=== PATIENT | male | born 1970 | race Caucasian/White ===

== ENCOUNTER 2017-09-24 02:01 | Emergency (ER) | payer OTHER ==
--- NOTE | 2017-09-24 02:08 | PDOC ---
History of Present Illness - General History Source: Patient Exam Limitations: No Limitations - History of Present Illness Initial Comments: 09/24/17 03:18 Patient is a 46 year old male with a significant past medical history of diabetes, who presents to the ED with complaints of diffuse epigastric pain that began 1.5 hours before ED arrival. Patient reports experiencing intermittent epigastric pain that began 1.5 hours before arrival while at home. He reports eating arabic food tonight at 8pm and states it is what has given him these symptoms. Patient states epigastric pain is currently a sharp pain, that is 10/10 in intensity that he states feels like someone is punching him in the stomach. Patient states 1 episode of induced vomiting while brushing his teeth and one small episode of vomiting in the ED. He reports last bowel movement was at 8pm and last urination was at 9pm. Patient reports experiencing similar pain last year from same arabic restaurant. Denies chest pain, SOB. Denies chills. Denies nausea. Denies contact with sick individual, out of state travel. Denies any other symptoms. Allergies: None Social history: Current smoker (6 cigarettes per day). No alcohol. No illicit drugs. Surgical history: None PMD: None <Rao Kim - Last Filed: 09/24/17 03:17> <Alex Cruz - Last Filed: 09/24/17 04:15> - General Chief Complaint: Pain Stated Complaint: ABDOMINAL PAIN Time Seen by Provider: 09/24/17 02:08 Past History <Rao Kim - Last Filed: 09/24/17 03:17> - Past Medical History Asthma: Yes Diabetes: Yes (PO AND SQ MEDS) HTN: Yes (NOT ON MEDS) Hypercholesterolemia: Yes (NOT ON MEDS) Thyroid Disease: Yes (NOT ON MEDS) - Immunization History Td Vaccination: Yes TDAP Vaccination: Yes Immunization Up to Date: (NEGATIVE HIV AND HEP C 2013) - Suicide/Smoking/Psychosocial Hx Smoking Status: Yes Smoking History: Current every day smoker Number of Cigarettes Smoked Daily: 5 Hx Alcohol Use: No Substance Use Type: Heroin, Prescribed <Alex Cruz - Last Filed: 09/24/17 04:15> - Past Medical History Allergies/Adverse Reactions: Allergies Allergy/AdvReac Type Severity Reaction Status Date / Time No Known Allergies Allergy Verified 09/24/17 02:07 Home Medications: Ambulatory Orders Buprenorphine/Naloxone [Suboxone 8 mg/2 mg Sl Film] 1 each SL BID 06/02/13 Insulin (Levemir) [Levemir Flexpen -] 40 units SQ BID 06/02/13 Metformin HCl [Riomet] 500 mg PO BID 06/02/13 Famotidine [Pepcid] 20 mg PO DAILY #0 tablet 06/03/13 Mag Hydrox/Al Hydrox/Simeth [Maalox Advanced Suspension] 30 ml PO QID #0 oral.susp 06/03/13 Ondansetron [Zofran *Odt*] 4 mg SL PRN PRN #14 od.tablet 11/08/15 Review of Systems - Review of Systems Able to Perform ROS?: Yes Comments:: 09/24/17 03:18 GENERAL/CONSTITUTIONAL: No fever or chills. No weakness. HEAD, EYES, EARS, NOSE AND THROAT: No change in vision. No ear pain or discharge. No sore throat. CARDIOVASCULAR: No chest pain or shortness of breath. RESPIRATORY: No cough, wheezing, or hemoptysis. GASTROINTESTINAL: +Diffuse epigastric pain. No nausea, diarrhea or constipation. GENITOURINARY: No dysuria, frequency, or change in urination. MUSCULOSKELETAL: No joint or muscle swelling or pain. No neck or back pain. SKIN: No rash NEUROLOGIC: No headache, vertigo, loss of consciousness, or change in strength/ sensation. ENDOCRINE: No increased thirst. No abnormal weight change. HEMATOLOGIC/LYMPHATIC: No anemia, easy bleeding, or history of blood clots. ALLERGIC/IMMUNOLOGIC: No hives or skin allergy. All Other Systems: Reviewed and Negative <Rao Kim - Last Filed: 09/24/17 03:17> *Physical Exam - Vital Signs Last Vital Signs Temp Pulse Resp BP Pulse Ox 98.0 F 98 H 14 141/92 100 09/24/17 02:07 09/24/17 02:07 09/24/17 02:07 09/24/17 02:07 09/24/17 02:07 - Physical Exam Comments: 09/24/17 03:18 GENERAL: Awake, alert, and fully oriented, in no acute distress HEAD: No signs of trauma EYES: PERRLA, EOMI, sclera anicteric, conjunctiva clear ENT: Auricles normal inspection, hearing grossly normal, nares patent, oropharynx clear without exudates. Moist mucosa NECK: Normal ROM, supple, no lymphadenopathy, JVD, or masses LUNGS: Breath sounds equal, clear to auscultation bilaterally. No wheezes, and no crackles HEART: Regular rate and rhythm, normal S1 and S2, no murmurs, rubs or gallops ABDOMEN: +Diffuse Tenderness in all four quadrants. No peritoneal signs, No distention. No Tympani. Soft, nontender, normoactive bowel sounds. No guarding, no rebound. No masses EXTREMITIES: Normal range of motion, no edema. No clubbing or cyanosis. No cords, erythema, or tenderness NEUROLOGICAL: Cranial nerves II through XII grossly intact. Normal speech, normal gait SKIN: Warm, Dry, normal turgor, no rashes or lesions noted. <Rao Kim - Last Filed: 09/24/17 03:17> ED Treatment Course - LABORATORY CBC & Chemistry Diagram: 09/24/17 02:32 09/24/17 02:32 - ADDITIONAL ORDERS Additional order review: Laboratory Results 09/24/17 02:32 PT with INR 10.10 INR 0.89 09/24/17 02:32 RBC 4.85 MCV 85.1 MCHC 33.5 RDW 13.0 MPV 8.8 Neutrophils % 63.3 Lymphocytes % 26.8 D Monocytes % 5.8 Eosinophils % 3.5 D Basophils % 0.6 - Medications Given in the ED: ED Medications Discontinued Medications Generic Name Dose Route Start Last Admin Trade Name Freq PRN Reason Stop Dose Admin Dicyclomine HCl 20 mg 09/24/17 02:16 09/24/17 02:40 Bentyl Injection - IM 09/24/17 02:17 Not Given ONCE ONE Dicyclomine HCl 20 mg 09/24/17 02:26 09/24/17 02:34 Bentyl - PO 09/24/17 02:27 20 mg ONCE ONE Administration Lidocaine HCl 30 ml 09/24/17 02:26 09/24/17 02:34 Xylocaine 2% Viscous Oral - MM 09/24/17 02:27 30 ml ONCE ONE Administration Simethicone 160 mg 09/24/17 02:19 09/24/17 02:34 Mylicon - PO 09/24/17 02:20 Not Given ONCE ONE <Kishore Kimew - Last Filed: 09/24/17 03:17> - LABORATORY CBC & Chemistry Diagram: 09/24/17 02:32 09/24/17 02:32 <Alex Cruz - Last Filed: 09/24/17 04:15> *DC/Admit/Observation/Transfer - Attestations Scribe Attestion: 09/24/17 03:18 Documentation prepared by Rao Kim, acting as medical imaging technician for Alex Cruz MD/DO. <Rao Kim - Last Filed: 09/24/17 03:17> - Discharge Dispostion Admit: No - Attestations Physician Attestion: 09/24/17 02:08 I, Dr. Alex Cruz, attest that this document has been prepared under my direction and personally reviewed by me in its entirety. I further attest, that it accurately reflects all work, treatment, procedures and medical decision -making performed by me. <Alex Cruz - Last Filed: 09/24/17 04:15> Diagnosis at time of Disposition: Abdominal pain Qualifiers: Abdominal location: unspecified location Qualified Code(s): R10.9 - Unspecified abdominal pain - Discharge Dispostion Disposition: HOME Condition at time of disposition: Good - Patient Instructions Printed Discharge Instructions: DI for Abdominal Pain-Adult Additional Instructions: Y[place]- Sorry this happened to you. Stay away from that food. Return to us if worse or any problems. Follow up with your doctor later this week. Best- Dr. Alex Cruz
[2017-09-24 02:10] VITALS: TEMP 98; BMI 33.5
[2017-09-24] MEDS ORDERED: DICYCLOMINE HCL 20 MG/2 ML AMPUL IM ONE (02:16)
[2017-09-24] MEDS ORDERED: SODIUM CHLORIDE 1,000 ML IV STA (02:19)
[2017-09-24] MEDS ORDERED: SIMETHICONE 80 MG TAB.CHEW (FP) PO ONE (02:19)
[2017-09-24] MEDS ORDERED: DICYCLOMINE HCL 10 MG CAPSULE ONE (02:25)
[2017-09-24] MEDS ORDERED: DICYCLOMINE HCL 20 MG TABLET PO ONE (02:26)
[2017-09-24] MEDS ORDERED: LIDOCAINE VISCOUS 2% ORAL/TOP 20 ML UNIT-DOSE CUP ONE ×2 (02:26→04:18)
[2017-09-24] MEDS ORDERED: LIDOCAINE VISCOUS 2% ORAL/TOP 20 ML UNIT-DOSE CUP MM ONE ×2 (02:26→04:12)
[2017-09-24] MEDS ORDERED: MAG HYDROX/AL HYDROX/SIMETH 30 ML UNIT-DOSE CUP ONE ×2 (02:26→04:18)
[2017-09-24] MEDS ORDERED: MAG HYDROX/AL HYDROX/SIMETH 30 ML UNIT-DOSE CUP PO PRN (02:26)
[2017-09-24 02:41] LABS: BASOPHIL 0.6 % (0-2.0); EOSINOPHIL 3.5 % (0-4.5); MCH 28.5 pg (25.7-33.7); MCHC 33.5 g/dl (32.0-35.9); MEAN CELL VOLUME 85.1 fl (80-96); MEAN PLT VOLUME 8.8 fl (7.5-11.1); NEUTROPHILS 63.3 % (42.8-82.8); PLATELET COUNT 302 K/MM3 (134-434)
[2017-09-24 02:53] LABS: INR 0.89 (0.82-1.09); PROTHROMBIN TIME (PATIENT) 10.1 SEC (9.98-11.88)
[2017-09-24 03:12] LABS: ALBUMIN 4.2 g/dl (3.4-5.0); ANION GAP 9 (8-16); BILIRUBIN,TOTAL 0.3 mg/dL (0.2-1.0); CALCIUM 9.2 mg/dL (8.5-10.1); CO2 27 mmol/L (21-32); CREATININE 0.8 mg/dL (0.7-1.3); GLUCOSE,RANDOM 253 mg/dL (74-106); SGOT/AST 12 U/L (15-37); TOT PROT 7.2 g/dl (6.4-8.2)
[2017-09-24 03:18] LABS: ALK PHOS 102 U/L (45-117); SGPT/ALT 28 U/L (12-78)
[2017-09-24] MEDS ORDERED: MAG HYDROX/AL HYDROX/SIMETH 30 ML UNIT-DOSE CUP PO ONE (04:12)
[2017-09-24 04:26] VITALS: BP 141/87; PULSE 85
== END 2017-09-24 04:25 | disposition home or self-care (01) ==
LOC: JER 02:01
PROC: 3E0337Z Introduction of Electrolytic and Water Balance Substance into Peripheral Vein, Percutaneous Approach (ICD-10-PCS; principal; 2017-09-24)
DX: R10.13 Epigastric pain (principal); I10 Essential (primary) hypertension; E78.00 Pure hypercholesterolemia, unspecified; E11.9 Type 2 diabetes mellitus without complications; Z79.4 Long term (current) use of insulin; Z79.84 Long term (current) use of oral hypoglycemic drugs; E07.9 Disorder of thyroid, unspecified
CPT/HCPCS: 36415; 80053; 83690; 85025; 85610; 96360; 99283-25

== ENCOUNTER 2020-01-04 10:45 | Inpatient (IN) | payer OTHER ==
[2020-01-04 11:16] VITALS: BMI 30.1
--- NOTE | 2020-01-04 13:43 | HP ---
COWS - Scale Resting Pulse: 2= SD 101-120 Sweatin= Chills/Flushing Restless Observation: 1= Difficult to Sit Still Pupil Size: 1= Pupils >than Normal Bone or Joint Aches: 2= Severe Diffuse Aches Runny Nose/ Eye Tearin= Runny Nose/Eyes GI Upset > 30mins: 2= Nausea/Diarrhea Tremor Observation: 2= Slight Tremor Visible Yawning Observation: 2= >3x During Session Anxiety or Irritability: 2=Irritable/Anxious Goose Flesh Skin: 0=Smooth Skin COWS Score: 17 CIWA Score Nausea/Vomitin-Mild Nausea/No Vomiting Muscle Tremors: 2 Anxiety: 2 Agitation: 2 Paroxysmal Sweats: 1-Minimal Palms Moist Orientation: 0-Oriented Tacttile Disturbances: 1-Very Mild Itch/Numbness Auditory Disturbances: 0-None Visual Disturbances: 1-Very Mild Sensitivity Headache: 2-Mild CIWA-Ar Total Score: 12 - Admission Criteria OASAS Guidelines: Admission for Medically Managed Detox: Requires at least one of the followin. CIWA greater than 12 2. Seizures within the past 24 hours 3. Delirium tremens within the past 24 hours 4. Hallucinations within the past 24 hours 5. Acute intervention needed for co occurring medical disorder 6. Acute intervention needed for co occurring psychiatric disorder 7. Severe withdrawal that cannot be handled at a lower level of care (continued vomiting, continued diarrhea, abnormal vital signs) requiring intravenous medication and/or fluids 8. Admitting History and Physical - Admission Chief Complaint: i sharonda help to stop using heroin History of Present Illness: this 49 years old male with heroin dependence,seeking help to stop,also on xanax first visit to this facility seizure drug withdrawal ,last 1 years ago syncope longest sobriety 5 years nicotine dependence plan for out patient program,possible methadone program . 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 Psych: Yes: Bipolar, Depression Endocrine: Yes: Diabetes Mellitus - Past Surgical History Past Surgical History: Yes: None - Smoking History Smoking history: Current every day smoker Have you smoked in the past 12 months: Yes Aproximately how many cigarettes per day: 5 - Alcohol/Substance Use Hx Alcohol Use: No History of Substance Use: reports: Heroin, Tranquilizers - Social History Usual Living Arrangement: Yes: Alone ADL: Support Services Occupation: unemployed History of Recent Travel: No Admission ROS [facility] Chief Complaint: i need hel[ to stop using drug heroin and xanax Allergies/Adverse Reactions: Allergies Allergy/AdvReac Type Severity Reaction Status Date / Time No Known Allergies Allergy Verified 01/04/20 10:55 History of Present Illness: this 49 years old male with heroin and xanax dependence,seeking help,withdrawal symptom seizure last 10 years ago last detox 10 years ago in [facility] dm2 - Ebola screening Have you traveled outside of the country in the last 21 days: No Have you had contact with anyone from an Ebola affected area: No Do you have a fever: No - Review of Systems Constitutional: Chills, Loss of Appetite, Malaise, Night Sweats, Changes in sleep, Weakness EENT: reports: Tearing, Nose Congestion Respiratory: reports: No Symptoms reported Cardiac: reports: No Symptoms Reported GI: reports: Nausea, Poor Appetite, Vomiting, Abdominal cramping : reports: No Symptoms Reported Musculoskeletal: reports: Back Pain, Muscle Pain Integumentary: reports: Dryness Neuro: reports: Headache, Tremors Endocrine: reports: No Symptoms Reported Hematology: reports: No Symptoms Reported Psychiatric: reports: No Sypmtoms Reported, Mood/Affect Appropiate, Orientated x3 Other Systems: Reviewed and Negative Patient History - Patient Medical History Hx Asthma: No Hx Chronic Obstructive Pulmonary Disease (COPD): No Hx Cardiac Disorders: Yes Hx Hypertension: No Hx Hypercholesterolemia: Yes (on lipitor 40 mgs po daily) Hx Seizures: No Hx Diabetes: Yes (on meds) Hx Gastrointestinal Disorders: No Hx Genitourinary Disorders: No Hx Sexually Transmitted Disorders: No Hx Renal Disease (ESRD): No Hx Thyroid Disease: Yes (on med hypothroidism synthroid 50 mcg po daily) Hx Human Immunodeficiency Virus (HIV): No (last 2019 negative) Hx Hepatitis C: No Hx Depression: Yes Hx Suicide Attempt: No Hx Bipolar Disorder: Yes Hx Schizophrenia: No Other Medical History: no suicidal,no homicidal - Patient Surgical History Past Surgical History: No Hx Neurologic Surgery: No Hx Cataract Extraction: No Hx Cardiac Surgery: No Hx Lung Surgery: No Hx Breast Surgery: No Hx Breast Biopsy: No Hx Abdominal Surgery: No Hx Appendectomy: No Hx Cholecystectomy: No Hx Genitourinary Surgery: No Hx Section: No Hx Orthopedic Surgery: No Anesthesia Reaction: No - PPD History Previous Implant?: Yes Documented Results: Positive w/o proof Implanted On Prior R Admission?: No PPD to be Administered?: No - Smoking Cessation Smoking history: Current every day smoker Have you smoked in the past 12 months: Yes Aproximately how many cigarettes per day: 5 Cigars Per Day: 0 Hx Chewing Tobacco Use: No Initiated information on smoking cessation: Yes 'Breaking Loose' booklet given: 01/04/20 - Substance & Tx. History Hx Alcohol Use: No Hx Substance Use: Yes Substance Use Type: Heroin, Tranquilizers Hx Substance Use Treatment: Yes (2009 did not recall facility) - Substances abused Heroin Substance route: Injection Frequency: Daily Amount used: 20 bags Age of first use: 17 Date of last use: 01/04/20 Alprazolam (Xanax) Substance route: Oral Frequency: Daily Amount used: 6mgs Age of first use: 20 Date of last use: 01/04/20 Admission Physical Exam S - Vital Signs Vital Signs: Vital Signs - 24 hr 01/04/20 01/04/20 01/04/20 11:04 11:19 13:28 Temperature 97.5 F L 97.5 F L 97.5 F L Pulse Rate 103 H 103 H 103 H Respiratory 20 20 20 Rate Blood Pressure 99/69 99/69 99/69 - Physical General Appearance: Yes: Moderate Distress, Tremorous, Irritable, Sweating, Anxious HEENTM: Yes: Normal ENT Inspection, RAUL, Pharynx Normal Respiratory: Yes: Lungs Clear, Normal Breath Sounds, No Respiratory Distress Neck: Yes: Within Normal Limits, Supple, Trachea in good position Breast: Yes: Within Normal Limits Cardiology: Yes: Tachycardia Abdominal: Yes: Within Normal Limits, Normal Bowel Sounds, Non Tender, Soft Genitourinary: Yes: Within Normal Limits Back: Yes: Muscle Spasm Musculoskeletal: Yes: Back pain, Muscle Pain Extremities: Yes: Tremors Neurological: Yes: insulation cutter II-XII NML intact, Fully Oriented, Alert, Motor Strength 5/5 Integumentary: Yes: Dry Lymphatic: Yes: Within Normal Limits - Diagnostic (1) Opioid dependence with withdrawal Current Visit: Yes Status: Acute (2) Seizure Current Visit: Yes Status: Acute (3) Syncope Current Visit: Yes Status: Acute (4) IVDU (intravenous drug user) Current Visit: Yes Status: Acute (5) DM2 (diabetes mellitus, type 2) Current Visit: Yes Status: Acute (6) Hypothyroidism Current Visit: Yes Status: Acute (7) Bipolar disorder Current Visit: Yes Status: Acute (8) Uncomplicated sedative, hypnotic or anxiolytic withdrawal Current Visit: Yes Status: Acute Cleared for Admission S - Detox or Rehab [facility] Level of Care: Medically Managed Detox Regimen/Protocol: Methadone/Valium Breathalyzer - Breathalyzer Breathalyzer: 0 Urine Drug Screen - Test Device Lot number: [id number] Expiration date: 10/04/21 - Control Is test valid?: Yes - Results Drug screen NEGATIVE: No Urine drug screen results: FEN-Fentanyl, MOP-Opiates, BZO-Benzodiazepines Inpatient Rehab Admission - Rehab Decision to Admit Inpatient rehab admission?: No
[2020-01-04] MEDS ORDERED: NICOTINE POLACRILEX 2 MG GUM BUC PRN (14:11)
[2020-01-04] MEDS ORDERED: MAGNESIUM HYDROX 2400MG/30ML ORAL SUSPENSION 30 ML CUP PO PRN (14:11)
[2020-01-04] MEDS ORDERED: ACETAMINOPHEN 325 MG TABLET (FP) PO PRN ×2 (14:11)
[2020-01-04] MEDS ORDERED: BISMUTH SUBSALICYLATE 524 MG/30 ML UD PO PRN (14:11)
[2020-01-04] MEDS ORDERED: diazePAM 5 MG TABLET PO ONE (14:11)
[2020-01-04] MEDS ORDERED: METHOCARBAMOL 500 MG TABLET PO PRN (14:11)
[2020-01-04] MEDS ORDERED: MAG HYDROX/AL HYDROX/SIMETH 30 ML UNIT-DOSE CUP PO PRN (14:11)
[2020-01-04] MEDS ORDERED: cloNIDine HCL 0.1 MG TABLET PO PRN (14:11)
[2020-01-04] MEDS ORDERED: MAGNESIUM CITRATE 300 ML BOTTLE PO PRN (14:11)
[2020-01-04] MEDS ORDERED: MENTHOL/PHENOL 1 EACH UD MM PRN (14:11)
[2020-01-04] MEDS ORDERED: MELATONIN 5 MG TABLETS PO PRN (14:11)
[2020-01-04] MEDS ORDERED: IBUPROFEN 400 MG TABLET (FP) PO PRN (14:11)
[2020-01-04] MEDS ORDERED: METHADONE HCL 10 MG TABLET (FOR DETOX USE ONLY) PO ONE (14:11)
[2020-01-04] MEDS ORDERED: diazePAM 5 MG TABLET PO PRN (14:11)
[2020-01-04] MEDS ORDERED: hydrOXYzine PAMOATE 25 MG CAPSULE (FP) PO PRN (14:11)
[2020-01-04] MEDS: INSULIN SLIDING SCALE (NOVOLOG) 1 VIAL SQ SCH ×2 (17:51→21:07)
[2020-01-04] MEDS: diazePAM 5 MG TABLET PO SCH (21:18)
[2020-01-04] MEDS ORDERED: THIAMINE HCL 100 MG TABLET (FP) PO SCH (22:00)
[2020-01-05] MEDS: diazePAM 5 MG TABLET PO SCH (05:57)
[2020-01-05] MEDS ORDERED: LEVOTHYROXINE NA 50 MCG TABLET (FP) PO SCH (07:00)
[2020-01-05] MEDS: INSULIN SLIDING SCALE (NOVOLOG) 1 VIAL SQ SCH (07:01)
[2020-01-05 08:41] VITALS: BP 134/82; PULSE 68; TEMP 97.2
--- NOTE | 2020-01-05 08:53 | PN ---
[facility] CIWA - CIWA Score Nausea/Vomitin-Mild Nausea/No Vomiting Muscle Tremors: 3 Anxiety: 3 Agitation: 3 Paroxysmal Sweats: 1-Minimal Palms Moist Orientation: 0-Oriented Tacttile Disturbances: 1-Very Mild Itch/Numbness Auditory Disturbances: 0-None Visual Disturbances: 0-None Headache: 2-Mild CIWA-Ar Total Score: 14 S COWS - Scale Resting Pulse: 0= CA 80 or Below Sweatin= No chills or Flushing Restless Observation: 1= Difficult to Sit Still Pupil Size: 1= Pupils >than Normal Bone or Joint Aches: 2= Severe Diffuse Aches Runny Nose/ Eye Tearin= Runny Nose/Eyes GI Upset > 30mins: 2= Nausea/Diarrhea Tremor Observation of Outstretched Hands: 1= Tremor [place], Not Seen Yawning Observation: 1= 1-2x During Session Anxiety or Irritability: 2=Irritable/Anxious Goose Flesh Skin: 0=Smooth Skin COWS Score: 12 [facility] Progress Note (SOAP) Subjective: alert,irritable,anxious,interrupted sleep,tremor,pain in the body and back Objective: 01/05/20 08:51 Vital Signs Temperature 97.2 F L 01/05/20 05:45 Pulse Rate 68 01/05/20 05:45 Respiratory Rate 20 01/05/20 05:45 Blood Pressure 134/82 01/05/20 05:45 O2 Sat by Pulse Oximetry (%) 01/05/20 08:51 labs pending Assessment: 01/05/20 08:51 withdrawal symptom Plan: continue detox methadone and valium regimen
--- NOTE | 2020-01-05 08:56 | PN ---
[facility] Progress Note Note: patient did not want to complete treatment,stated he is not ready to continue treatment,all attempts to convince patient to stay with no avail, high risk of relapsing explained,patient understood,signed release ama, advise to call 911 if bot feeling well,follow up with medical provider for continue medical management
--- NOTE | 2020-01-05 08:57 | DS ---
[facility] Detox Discharge Summary Admission Date: 01/04/20 Discharge Date: 01/05/20 - History Present History: Opioid Dependence, Sedative Dependence Additional Comments: patient did not want to complete treatment,all attempts to convince patient to stay with no avail,high risks of relapsing explained,understood, advise to call 911 ifnot feeling well alert,oriented x 3 heart normal heart sound,s1 s2 lung clear,no wheezing no abdominal pain total time spending on discharge 3o mins Pertinent Past History: type 2 dm ivdu seizure syncope bipolar disorder - Physical Exam Results Vital Signs: Vital Signs Temperature 97.2 F L 01/05/20 05:45 Pulse Rate 68 01/05/20 05:45 Respiratory Rate 20 01/05/20 05:45 Blood Pressure 134/82 01/05/20 05:45 O2 Sat by Pulse Oximetry (%) Pertinent Admission Physical Exam Findings: withdrawal signs and symptom Laboratory Last Values POC Glucometer 128 UNITS (80-120) 01/05/20 05:54 labs pending Vital Signs Temperature 97.2 F L 01/05/20 05:45 Pulse Rate 68 01/05/20 05:45 Respiratory Rate 01/05/20 05:45 Blood Pressure 134/82 01/05/20 05:45 O2 Sat by Pulse Oximetry (%) - Medication Discharge Medications: Ambulatory Orders Insulin (Levemir) [Levemir Flexpen -] 20 units SQ BID 06/02/13 Aspirin [ASA -] 81 mg PO DAILY 01/04/20 Metformin HCl [Glucophage] 1,000 mg PO BID 01/04/20 Sitagliptin Phosphate [Januvia -] 50 mg PO DAILY 01/04/20 - Diagnosis (1) Opioid dependence with withdrawal Current Visit: Yes Status: Acute (2) Seizure Current Visit: Yes Status: Acute (3) Syncope Current Visit: Yes Status: Acute (4) IVDU (intravenous drug user) Current Visit: Yes Status: Acute (5) DM2 (diabetes mellitus, type 2) Current Visit: Yes Status: Acute (6) Hypothyroidism Current Visit: Yes Status: Acute (7) Bipolar disorder Current Visit: Yes Status: Acute (8) Uncomplicated sedative, hypnotic or anxiolytic withdrawal Current Visit: Yes Status: Acute - AMA Did Patient Leave Against Medical Advice: Yes
--- NOTE | 2020-01-05 09:30 | EKG ---
Test Reason : Blood Pressure : / mmHG Vent. Rate : 073 BPM Atrial Rate : 073 BPM P-R Int : 156 ms QRS Dur : 082 ms QT Int : 380 ms P-R-T Axes : 065 065 049 degrees QTc Int : 418 ms NORMAL SINUS RHYTHM NORMAL ECG WHEN COMPARED WITH ECG OF 08-NOV-2015 14:36, NONSPECIFIC T WAVE ABNORMALITY NO LONGER EVIDENT IN LATERAL LEADS Confirmed by Christy Heard ([id number]) on 01/05/2020 9:30:28 AM Referred By: AURELIA Confirmed By:Christy Heard
[2020-01-05] MEDS ORDERED: ASPIRIN 81 MG CHEWABLE TABLETS PO SCH (10:00)
[2020-01-05] MEDS ORDERED: sitaGLIPtin PHOSPHATE 50 MG TABLET PO SCH (10:00)
[2020-01-05] MEDS ORDERED: METHADONE (DETOX) 20 MG, METHADONE (DETOX) 5 MG PO ONE (10:00)
[2020-01-05] MEDS ORDERED: PRENATAL VITAMINS W/ FOLIC ACID TABLET (FP) PO SCH (10:00)
[2020-01-05] MEDS ORDERED: metFORMIN HCL 500 MG TABLET (FP) PO SCH (10:00)
[2020-01-05 10:23] LABS: HEMATOCRIT 36.9 % (35.4-49); HEMOGLOBIN 12.4 GM/dL (11.7-16.9); MCH 28.9 pg (25.7-33.7); MCHC 33.6 g/dl (32.0-35.9); MEAN PLT VOLUME 9.2 fl (7.5-11.1); PLATELET COUNT 214 K/MM3 (134-434); RDW 13.2 % (11.9-15.9); WHITE BLOOD COUNT 4.4 K/mm3 (4.0-10.0)
[2020-01-05 10:42] LABS: ALBUMIN 3.8 g/dl (3.4-5.0); BILIRUBIN,TOTAL 0.5 mg/dL (0.2-1); BLOOD UREA NITROGEN 10.9 mg/dL (7-18); CALCIUM 9.1 mg/dL (8.5-10.1); CREATININE 0.7 mg/dL (0.55-1.3); POTASSIUM 4.2 mmol/L (3.5-5.1); TOT PROT 6.6 g/dl (6.4-8.2)
[2020-01-06] MEDS ORDERED: diazePAM 5 MG TABLET PO SCH (06:00)
[2020-01-06] MEDS ORDERED: LEVOTHYROXINE NA 25 MCG TABLET (FP) PO SCH (07:00)
[2020-01-06] MEDS ORDERED: METHADONE HCL 10 MG TABLET (FOR DETOX USE ONLY) PO ONE (10:00)
[2020-01-07] MEDS ORDERED: diazePAM 5 MG TABLET PO ONE (06:00)
[2020-01-07] MEDS ORDERED: METHADONE (DETOX) 10 MG, METHADONE (DETOX) 5 MG PO ONE (10:00)
[2020-01-08] MEDS ORDERED: METHADONE HCL 10 MG TABLET (FOR DETOX USE ONLY) PO ONE (10:00)
[2020-01-09] MEDS ORDERED: METHADONE HCL 5 MG TABLET (FOR DETOX USE ONLY) PO ONE (06:00)
== END 2020-01-05 08:52 | disposition left against medical advice (07) | DRG 770 ==
LOC: YASAS 10:45 → Y6N 14:18
PROVIDERS: ADMIT Allergy & Immunology; ATTEND Allergy & Immunology
PROC: HZ2ZZZZ Detoxification Services for Substance Abuse Treatment (ICD-10-PCS; principal; 2020-01-04)
DX: F11.23 Opioid dependence with withdrawal (principal); F13.230 Sedative, hypnotic or anxiolytic dependence with withdrawal, uncomplicated; F17.210 Nicotine dependence, cigarettes, uncomplicated; F31.9 Bipolar disorder, unspecified; E78.00 Pure hypercholesterolemia, unspecified; E11.9 Type 2 diabetes mellitus without complications; E03.9 Hypothyroidism, unspecified; R55 Syncope and collapse; Z86.69 Personal history of other diseases of the nervous system and sense organs
CPT/HCPCS: 36415; 80053; 82962; 85027; 86593; 87389; 93005; 93010

== ENCOUNTER 2024-12-19 04:24 | Emergency (ER) | payer OTHER ==
[2024-12-19 04:31] VITALS: TEMP 97.8; BMI 29.2
[2024-12-19] MEDS ORDERED: ASPIRIN 81 MG CHEWABLE TABLETS ONE (04:58)
[2024-12-19] MEDS ORDERED: morphine SULFATE 4 MG/ML VIAL ONE (04:58)
[2024-12-19] MEDS: ASPIRIN 81 MG CHEWABLE TABLETS PO ONE (04:58)
[2024-12-19] MEDS ORDERED: TICAGRELOR 90 MG TABLET PO ONE (05:00)
[2024-12-19] MEDS ORDERED: HEPARIN NA (PORCINE) 5,000 UNITS/ML 1ML VIAL IVPUSH PRN ×2 (05:01)
[2024-12-19] MEDS ORDERED: HEPARIN INFUSION - 25,000 UNITS/500 ML INFUS.BAG IVPB ONE (05:01)
[2024-12-19] MEDS ORDERED: HEPARIN NA (PORCINE) 5,000 UNITS/ML 1ML VIAL ONE (05:01)
[2024-12-19] MEDS: morphine SULFATE 4 MG/ML VIAL IVPUSH ONE (05:21)
[2024-12-19] MEDS: ASPIRIN 325 MG TABLET PO ONE (05:21)
[2024-12-19] MEDS: HEPARIN NA (PORCINE) 5,000 UNITS/ML 1ML VIAL IVPUSH ONE (05:24)
[2024-12-19] MEDS: LACTATED RINGERS SOLUTION 1000 ML INFUS.BAG IV ONE (05:34)
[2024-12-19] MEDS: HEPARIN SOD,PORK IN 0.45% NACL 25,000 UNITS/500 ML INFUS.BAG IVPB SCH (05:35)
[2024-12-19] MEDS ORDERED: HEPARIN INFUSION - 25,000 UNITS/500 ML INFUS.BAG IVPB SCH (05:38)
[2024-12-19 05:48] VITALS: BP 152/88; PULSE 95; RESP 18
[2024-12-19] MEDS ORDERED: TICAGRELOR 90 MG TABLET PO SCH (10:00)
== END 2024-12-19 06:03 | disposition short-term general hospital (02) ==
LOC: JER 04:24
PROC: 3E033GC Introduction of Other Therapeutic Substance into Peripheral Vein, Percutaneous Approach (ICD-10-PCS; principal; 2024-12-19)
PROC: 3E033NZ Introduction of Analgesics, Hypnotics, Sedatives into Peripheral Vein, Percutaneous Approach (ICD-10-PCS; 2024-12-19)
DX: I21.3 ST elevation (STEMI) myocardial infarction of unspecified site (principal); R07.89 Other chest pain; R53.81 Other malaise; R11.10 Vomiting, unspecified
CPT/HCPCS: 82962; 93005; 93010; 99291; J1644

== ENCOUNTER 2025-06-01 19:16 | Emergency (ER) | payer OTHER ==
[2025-06-01 19:38] VITALS: TEMP 98.8; BMI 27.8
[2025-06-01] MEDS ORDERED: ACETAMINOPHEN INJECTION 100 ML ONE (20:19)
[2025-06-01] MEDS ORDERED: LIDOCAINE 5% TOPICAL PATCH ONE (20:19)
[2025-06-01] MEDS: LIDOCAINE 5% TOPICAL PATCH TP ONE (21:38)
[2025-06-01] MEDS: morphine CARPU-JECT 4 MG/1 ML DISP.SYRIN IVPUSH ONE (21:38)
[2025-06-01] MEDS: ACETAMINOPHEN 1000 MG/100 ML BAG IVPB ONE (22:00)
[2025-06-01] MEDS: LIDOCAINE PATCH REMOVAL MC SCH (22:00)
[2025-06-01 22:03] LABS: ABSOLUTE IMMATURE GRANULOCYTES 0.05 x10^3/uL (0.0-0.031); BASOPHILS # 0.04 x10^3/uL (0.01-0.08); EOSINOPHIL % 1.8 % (0.8-7.0); EOSINOPHILS # 0.14 x10^3/uL (0.04-0.54); MCHC 30.7 g/dl (32.3-36.5); MEAN CELL VOLUME 86.9 fl (79.0-92.2); MEAN PLT VOLUME 9.6 fl (9.4-12.4); MONOCYTE # 0.42 x10^3/uL (0.30-0.82); MONOCYTE % 5.4 % (5.3-12.2); RDW 15.5 % (12.2-16.1)
[2025-06-01 22:26] LABS: CO2 29.0 mmol/L (21-32); GLUCOSE,RANDOM 223.0 mg/dL (74-106)
[2025-06-01 22:29] LABS: CREATININE 1.2 mg/dL (0.55-1.3); SGOT/AST 27.0 U/L (15-37); SGPT/ALT 47.0 U/L (13-61)
[2025-06-01 22:31] LABS: TOT PROT 8.4 g/dl (6.4-8.2)
[2025-06-01 22:44] LABS: ALK PHOS 167.0 U/L (45-117)
[2025-06-01 23:07] VITALS: BP 123/77; PULSE 72; RESP 16
[2025-06-01 23:14] LABS: HCV DIAGNOSTIC IN-HOUSE W/RFLX NON-REACTIVE (NONREACTIVE)
[2025-06-02 21:31] LABS: HIV INTERPRETATION NEGATIVE (NEGATIVE)
== END 2025-06-01 23:00 | disposition home or self-care (01) ==
LOC: JER 19:16
PROC: 3E033NZ Introduction of Analgesics, Hypnotics, Sedatives into Peripheral Vein, Percutaneous Approach (ICD-10-PCS; principal; 2025-06-01)
DX: R07.89 Other chest pain (principal); R42 Dizziness and giddiness; W18.30XA Fall on same level, unspecified, initial encounter; Y92.019 Unspecified place in single-family (private) house as the place of occurrence of the external cause
CPT/HCPCS: 36415; 70450-TC; 71250-TC; 72125-TC; 80053; 82962; 83735; 84484; 85025; 86803; 87389; 93005; 93010; 96374; 99285-25